=== PATIENT | female | born 1985 | race Caucasian/White ===

== ENCOUNTER 2017-04-08 16:37 | Emergency (ER) | payer OTHER ==
[~2017-04-08] VITALS: Ht 157.5 cm; Wt 57.8 kg
[2017-04-08 16:41] VITALS: BP 136/70; PULSE 106; RESP 16; TEMP 101.7; O2SAT 99
--- NOTE | 2017-04-08 17:43 | PD ---
HPI Chief Complaint: Cold / Flu Symptoms Time Seen by Provider: 17:22 Travel History International Travel<30 days: No Contact w/Intl Traveler<30days: No Traveled to known affect area: No History of Present Illness HPI Patient comes emergency department plan flulike symptoms that began today. Patient reports fevers, body aches, sore throat, dry cough, and headaches. Patient reports taking Tylenol and Mucinex this morning for this. Denies doing anything else for this. Patient reports her son was diagnosed with the flu. Denies any known sick contacts. Denies any chest pain, shortness of breath, nausea, vomiting, abdominal pain, loss change in bowel or bladder, or . PFSH Past Medical History Medical History: Denies Significant Hx Diminished Hearing: No Tetanus Vaccination: > 5 Years Influenza Vaccination: No ?: Not Past Surgical History Surgical History: No Previous Surgery Social History Alcohol Use: Yes (rare) Tobacco Use: No Substance Use: No Allergies-Medications (Allergen,Severity, Reaction): Coded Allergies: No Known Allergies (Verified Allergy, Unknown, 04/08/17) Reported Meds & Prescriptions Reported Meds & Active Scripts Active Zofran Odt (Ondansetron Odt) 4 Mg Tab 4 Mg SL Q6HR PRN Tamiflu (Oseltamivir Phosphate) 75 Mg Cap 75 Mg PO BID 5 Days Review of Systems Except as stated in HPI: all other systems reviewed are Neg Physical Exam Narrative GENERAL: Well-developed, well nourished, in no acute distress, and non-ill appearing. SKIN: Focused skin assessment warm and dry. HEAD: Atraumatic. Normocephalic. EYES: Pupils equal and round. EOMI. No scleral icterus. No injection or drainage. ENT: No nasal bleeding or discharge. Mucous membranes pink and moist. Tympanic membranes pearly dee bilaterally. Posterior pharynx nonerythematous without exudate. Uvula is midline. No tenderness to the facial sinuses to palpation. NECK: Trachea midline. No cervical lymphadenopathy. Supple. No nuclear rigidity. CARDIOVASCULAR: Regular rate and rhythm. No murmur appreciated. RESPIRATORY: No accessory muscle use. No respiratory distress. Clear to auscultation. Breath sounds equal bilaterally. No coughing noted on exam. MUSCULOSKELETAL: No obvious deformities. No clubbing. No cyanosis. No edema. Full range of motion. NEUROLOGICAL: Awake and alert. No obvious cranial nerve deficits. Motor grossly within normal limits. Normal speech. PSYCHIATRIC: Appropriate mood and affect; insight and judgment normal. Data Data Last Documented VS Vital Signs Date Time Temp Pulse Resp B/P (MAP) Pulse Ox O2 Delivery O2 Flow Rate FiO2 04/08/17 18:51 04/08/17 18:49 101.8 04/08/17 18:32 99 16 100 04/08/17 17:46 Room Air Orders Orders Influenzae A/B Antigen (04/08/17 16:50) Group A Rapid Strep Screen (04/08/17 16:50) Chest, Single Ap (04/08/17 ) Strep Culture (Group A) (04/08/17 17:00) Ibuprofen (Motrin) (04/08/17 17:45) Acetaminophen (Tylenol) (04/08/17 17:45) Ed Discharge Order (04/08/17 18:26) MDM Medical Decision Making Medical Screen Exam Complete: Yes Emergency Medical Condition: Yes Interpretation(s) Last Impressions Chest X-Ray 04/08/17 0000 Signed Impressions: Service Date/Time: Saturday, April 08, 2017 17:23 - CONCLUSION: The lungs are clear. Aureliano Rudd MD Differential Diagnosis Influenza, strep pharyngitis, viral pharyngitis, pneumonia, URI, bronchitis, viral syndrome Narrative Course Patient looks great. Patients symptom complex is consistent with Influenza, or flu-like illness. The patient is tolerating fluids and is well hydrated. There is no evidence to suggest secondary infection (pneumonia, sepsis/bacteremia, etc.) at this time. I discussed with the patient, diagnosis, and plan of care and to follow up with the patients primary physician. Flu prep is positive. I discussed with the patient initiating Tamiflu and the patient agreed with plan. The patient was instructed to return if the worsens in anyway, especially if not tolerating fluids, increased pain or swelling, difficulty swallowing or breathing, or as needed. The patient agreed with plan. Chest X-ray was performed and negative for consolidation, pneumonia. Patient in no obvious distress upon re-evaluation. All pertinent laboratory/ Radiology result(s) discussed with patient. Patient was asked if they wanted to speak to my attending, which the patient did not wish to do at this time. Any questions/concerns in reference to patient diagnosis/condition discussed and clarified prior to patient's discharge. Reinforced sheer importance of close follow up with patient's primary physician or primary care clinic. Instructed patient to return to ED immediately, if symptoms return/worsen. Patient showed understanding of above instructions. Further instructions and recommendations were detailed in discharge paperwork. Patient ambulated without difficulty out of ED at discharge. Diagnosis Primary Impression: Influenza A Referrals: [facility] Patient Instructions: General Instructions, Influenza (ED) Additional Instructions: Follow-up with your primary care physician in 3-5 days for reevaluation. Take all medication as prescribed. Use [id number] Tylenol or ibuprofen as needed for pain and fever control. Follow instructions on the packaging. Drink plenty of non-caffeinated nonalcoholic fluids. Return to the emergency department if symptoms get worse. Med/Other Pt SpecificInfo: Prescription(s) given Scripts Ondansetron Odt (Zofran Odt) 4 Mg Tab 4 MG SL Q6HR Y for Nausea/Vomiting, #12 TAB 0 Refills Prov: Breanna Vogel DO 04/08/17 Oseltamivir (Tamiflu) 75 Mg Cap 75 MG PO BID for Mgmt Viral Infection for 5 Days, #10 CAP 0 Refills Prov: Breanna Vogel DO 04/08/17 Disposition: 01 DISCHARGE HOME Condition: Stable Tan Boateng Apr 08, 2017 17:43
[2017-04-08] MEDS ORDERED: ZOFR4TAB3 SL (17:44)
[2017-04-08] MEDS ORDERED: OSEL75 PO (17:44)
[2017-04-08] MEDS ORDERED: ACETAMINOPHEN 325 MG TAB PO ONE (17:45)
[2017-04-08] MEDS ORDERED: IBUPROFEN 800 MG TAB PO ONE (17:45)
[2017-04-08 17:46] VITALS: BP 126/77; PULSE 101; RESP 16; TEMP 102.8; O2SAT 100
--- NOTE | 2017-04-08 18:05 | RADRPT ---
EXAM DATE/TIME: 04/08/2017 17:23 [facility] COMPARISON: No previous studies available for comparison. INDICATIONS : Cough, flu-like symptoms for 1 week MEDICAL HISTORY : None. SURGICAL HISTORY : None. ENCOUNTER: Initial ACUITY: 1 day PAIN SCORE: 0/10 LOCATION: Bilateral chest FINDINGS: A single view of the chest demonstrates the lungs to be symmetrically aerated without evidence of mas s, infiltrate or effusion. The cardiomediastinal contours are unremarkable. Osseous structures are intact. CONCLUSION: The lungs are clear. Aureliano Rudd MD on April 08, 2017 at 18:01 Board Certified Radiologist. This report was verified electronically.
[2017-04-08 18:32] VITALS: BP 126/74; PULSE 99; RESP 16; TEMP 102.5; O2SAT 100
[2017-04-08 18:49] VITALS: TEMP 101.8
== END 2017-04-08 18:52 | disposition home or self-care (01) ==
LOC: PHEFT 16:37
DX: J09.X2 Influenza due to identified novel influenza A virus with other respiratory manifestations (principal)
CPT/HCPCS: 71045; 87081; 87804; 87880; 99284